=== PATIENT | male | born 1935 | race Caucasian/White ===

== ENCOUNTER → 2017-04-27 | Outpatient (CLI) | payer OTHER | LOC: FIMAGING 11:24 | PROVIDERS: ATTEND Specialist | DX: C61 Malignant neoplasm of prostate (principal) | CPT/HCPCS: 78306; A9503 ==

== ENCOUNTER 2018-03-22 20:52 | Inpatient (IN) | payer OTHER ==
--- NOTE | 2018-03-22 20:53 | EDPHY ---
H & P Time Seen by Provider: 03/22/18 20:53 - Personal History Tetanus Vaccine Date: <10 years - Medical/Surgical History Hx Asthma: No Hx Chronic Respiratory Disease: No Hx Diabetes: No Hx Cardiac Disease: No Hx Renal Disease: No Hx Cirrhosis: No Hx Alcoholism: No Hx HIV/AIDS: No Hx Splenectomy or Spleen Trauma: No Other PMH: prostate ca, bone ca, HTN, pre-diabete (resolved), sleep apnea, home O2 - Social History Smoking Status: Never smoked Constitutional: Initial Vital Signs Temperature (C) 36.8 C 03/22/18 21:06 Heart Rate 75 03/22/18 21:06 Respiratory Rate 16 03/22/18 21:06 Blood Pressure 144/91 H 03/22/18 21:06 O2 Sat (%) 93 03/22/18 21:06 O2 Delivery Mode Room Air O2 (L/minute) 3 Allergies/Adverse Reactions: clindamycin Allergy (Severe, Verified 10/12/13 16:16) Hives Penicillins Allergy (Severe, Verified 10/12/13 16:16) Anaphylaxis Sulfa (Sulfonamide Antibiotics) Allergy (Intermediate, Verified 10/12/13 16:16) Rash Home Medications: Medication Instructions Recorded Herbals/Supplements -Info Only 1 each PO AD 10/12/13 Levothyroxine [Synthroid 100 mcg 100 mcg PO DAILY18 10/12/13 (*)] Lisinopril [Zestril 20 mg (*)] 40 mg PO DAILY18 10/12/13 Pregabalin [Lyrica 75mg (*)] 75 mg PO BID 10/12/13 Simvastatin [Zocor 20 mg] 20 mg PO DAILY18 10/12/13 celeCOXIB [Celebrex (*)] 200 mg PO BID 10/12/13 Mirabegron [Myrbetriq] 25 mg PO DAILY18 04/14/16 Rivaroxaban [Xarelto 10mg (*)] 20 mg PO DAILY18 04/14/16 Furosemide [Lasix 20 MG (*)] 20 mg PO DAILY PRN 04/15/16 Latanoprost 0.005% [Xalatan 0.005% 1 drops EACHEYE HS 04/15/16 (*)] Pantoprazole Sodium [Protonix 40mg 40 mg PO DAILY18 04/15/16 (*)] Medical Decision Making - Diagnostics Imaging Results: Imaging Impressions Abdomen CT 03/22/18 20:59 Impression: 1. Mild constipation with sigmoid colon diverticulosis, but no active inflammation. 2. Accentuated abdominal pannus with obesity, but no ventral wall or inguinal hernia identified. 3. Interval development of widespread osteoblastic metastatic disease since 2014. 4. Hepatic steatosis. 5. Sequela of old granulomatous disease. Findings were discussed with Behzad Tsai MD at 22:54, on 03/22/2018. ED Course/Re-evaluation: CHIEF COMPLAINT: Groin pain HISTORY OF PRESENT ILLNESS: This patient is an 82 year old male with history of prostate cancer arriving via EMS complaining of bilateral inguinal pain and swelling. This has been ongoing for the past week. It was initially intermittent but is now fairly constant. Additionally, the patient complains of confusion and nausea. BGL 149 in transport. Patient states he has had a decreased appetite lately, but had a normal bowel movement last night. He has history of c-difficile. He has history of inguinal hernia repair in the past. He denies melena or hematochezia. No fever, vomiting, chest pain, shortness of breath, or other associated symptoms. REVIEW OF SYSTEMS: A 10 point review of systems was performed and is negative with the exception of the elements mentioned in the history of present illness. PHYSICAL EXAM: HR, BP, O2 Sat, RR. Temp noted General Appearance: Alert, well hydrated, appropriate, and non-toxic appearing. Head: Atraumatic without scalp tenderness or obvious injury Eyes: Pupils equal, round, reactive to light and accommodation, EOMI, no trauma , no injection. Ears: Clear bilaterally, no perforation, normal landmarks Nose: Atraumatic, no rhinorrhea, clear. Throat: There is no erythema or exudates, no lesions, normal tonsils, mucus membranes moist. Neck: Supple, 2+ carotid upstroke, nontender, no lymphadenopathy. Respiratory: No retractions, no distress, no wheezes, and no accessory muscle use. Lungs are clear to auscultation bilaterally. Cardiovascular: Regular rate and rhythm, no murmurs, rubs, or gallops. Bilateral carotid, radial, dorsalis pedis, and posterior tibial pulses intact. Good capillary refill all extremities. Gastrointestinal: Abdomen is soft, nontender, non-distended, no masses, no rebound, no guarding, no peritoneal signs. Genitourinary:Mild bulge on right inguinal area. Tender, right greater than left. Condom catheter in place Musculoskeletal: Normal active ROM of all extremities, atraumatic. Neurological: Alert, appropriate, and interactive. The patient has normal DTRs and non-focal cranial nerves, motor, sensory, and cerebellar exam. Skin: No rashes, good turgor, no nodules on palpation. Past medical history: History of prostate cancer, History of bone cancer, Hypertension, Pre-diabetes (resolved), Sleep apnea (on home oxygen) Past surgical history: Hernia repair. Family history: Noncontributory. Social history: Lives in [place]. . Retired. DIAGNOSTICS/PROCEDURES/CRITICAL CARE TIME: Study: CT of the abdomen and pelvis with IV contrast Indication: Right groin pain rule out hernia Results: CT scan of the abdomen and pelvis was obtained. The results of the study are no evidence of hernia however significant blastic metastatic disease most likely prostate. The study was read by the radiologist, Dr. Jaren Mcallister. I viewed the images myself on the PACS system. DIFFERENTIAL DIAGNOSIS: The differential diagnosis for the patient's abdominal pain included but was not limited to appendicitis, cholecystitis, hernias, testicular torsion, gastritis, and urinary tract infection. MEDICAL DECISION MAKIN:58 Met EMS at bedside. 82 y/o male presents with bilateral groin pain. On exam, there is tenderness to the inguinal areas, right greater than left, with mild bulge noted over the right inguinal area. Plan for labs including CBC, chemistries, liver, lipase. Plan for CT abdomen/pelvis. No acute findings on his CT except for progression of his metastatic prostate disease. No evidence of hernia or acute bowel inflammatory process. He is constipated and his sigmoid colon is in the lower right quadrant he may be feeling pain from this. I have offered to send this patient home however he is having significant difficulty controlling pain most likely from his blastic metastases in his pelvis and spine. In addition he has constipation. Additionally, his is elderly and has trouble managing him. We will admit him overnight and assess whether not it is appropriate for him to return home or whether he needs a different setting. - Data Points Laboratory Results: Laboratory Results 03/22/18 21:35 03/22/18 21:35 03/22/18 03/22/18 03/22/18 21:49 21:35 21:35 WBC 5.30 10^3/uL 10^3/uL (3.80-9.50) RBC 4.35 10^6/uL L 10^6/uL (4.40-6.38) Hgb 13.2 g/dL L g/dL (13.7-17.5) POC Hgb 13.9 gm/dL gm/dL (13.7-17.5) Hct 40.7 % % (40.0-51.0) POC Hct 41 % % (40-51) MCV 93.6 fL fL (81.5-99.8) MCH 30.3 pg pg (27.9-34.1) MCHC 32.4 g/dL g/dL (32.4-36.7) RDW 15.9 % H % (11.5-15.2) Plt Count 182 10^3/uL 10^3/uL (150-400) MPV 9.5 fL fL (8.7-11.7) Neut % (Auto) 62.3 % % (39.3-74.2) Lymph % (Auto) 22.3 % % (15.0-45.0) [place] % (Auto) 8.7 % % (4.5-13.0) Eos % (Auto) 4.3 % % (0.6-7.6) Baso % (Auto) 0.9 % % (0.3-1.7) Nucleat RBC Rel Count 0.0 % % (0.0-0.2) Absolute Neuts (auto) 3.30 10^3/uL 10^3/uL (1.70-6.50) Absolute Lymphs (auto) 1.18 10^3/uL 10^3/uL (1.00-3.00) Absolute Monos (auto) 0.46 10^3/uL 10^3/uL (0.30-0.80) Absolute Eos (auto) 0.23 10^3/uL 10^3/uL (0.03-0.40) Absolute Basos (auto) 0.05 10^3/uL 10^3/uL (0.02-0.10) Absolute Nucleated RBC 0.00 10^3/uL 10^3/uL (0-0.01) Immature Gran % 1.5 % H % (0.0-1.1) Immature Gran # 0.08 10^3/uL 10^3/uL (0.00-0.10) POC Sodium 142 mEq/L mEq/L (135-145) Sodium 140 mEq/L mEq/L (135-145) POC Potassium 4.2 mEq/L mEq/L (3.3-5.0) Potassium 4.3 mEq/L mEq/L (3.3-5.0) POC Chloride 101 mEq/L mEq/L (97-110) Chloride 100 mEq/L mEq/L (97-110) Carbon Dioxide 32 mEq/l H mEq/l (22-31) Anion Gap 8 mEq/L mEq/L (8-16) POC BUN 21 mg/dL mg/dL (7-23) BUN 21 mg/dL mg/dL (7-23) Creatinine 0.9 mg/dL mg/dL (0.7-1.3) POC Creatinine 0.9 mg/dL mg/dL (0.7-1.3) Estimated GFR > 60 Glucose 155 mg/dL H mg/dL (70-100) POC Glucose 164 mg/dL H mg/dL (70-100) Calcium 8.3 mg/dL L mg/dL (8.5-10.4) Total Bilirubin 0.6 mg/dL mg/dL (0.1-1.4) Conjugated Bilirubin 0.5 mg/dL mg/dL (0.0-0.5) Unconjugated Bilirubin 0.1 mg/dL mg/dL (0.0-1.1) AST 36 IU/L IU/L (17-59) ALT 45 IU/L IU/L (21-72) Alkaline Phosphatase 90 IU/L IU/L (38-126) Total Protein 6.2 g/dL L g/dL (6.3-8.2) Albumin 3.6 g/dL g/dL (3.5-5.0) Lipase 43 IU/L IU/L (23-300) Point of Care Test Results: Chemistry 03/22/18 21:49 POC Sodium 142 mEq/L mEq/L (135-145) POC Potassium 4.2 mEq/L mEq/L (3.3-5.0) POC Chloride 101 mEq/L mEq/L (97-110) POC BUN 21 mg/dL mg/dL (7-23) POC Creatinine 0.9 mg/dL mg/dL (0.7-1.3) POC Glucose 164 mg/dL H mg/dL (70-100) ISTAT H&H 03/22/18 21:49 POC Hgb 13.9 gm/dL gm/dL (13.7-17.5) POC Hct 41 % % (40-51) Departure - Departure Disposition: [facility] Inpatient Acute 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
[2018-03-22 21:55] LABS: PLATELET COUNT 182 10^3/uL (150-400)
[2018-03-22] MEDS ORDERED: IOPAMIDOL (ISOVUE-300) 100 ML BTL ONE (21:58)
[2018-03-22] MEDS ORDERED: NS 1,000 ML IV SCH (23:30)
[2018-03-22] MEDS ORDERED: BISACODYL 10 MG SUPP PR PRN (23:32)
[2018-03-22] MEDS ORDERED: POLYETHYLENE GLYCOL 3350 17 GM PKT PO PRN (23:32)
[2018-03-22] MEDS ORDERED: LACTULOSE 20 GM/30 ML UDCUP PO PRN (23:32)
[2018-03-22] MEDS ORDERED: MAGNESIUM HYDROXIDE 30 ML UDCUP PO PRN (23:32)
[2018-03-23] MEDS ORDERED: SODIUM CL NASAL GEL 14.1 GM TUBE TP PRN (00:05)
--- NOTE | 2018-03-23 00:20 | PDGENHP ---
History and Physical - Chief Complaint Low back pain, pelvic pain - History of Present Illness Source-patient is seen on the medical floor. His has gone home for the evening. He is a fair historian due to some memory deficits but able to relay majority of the information. EMR was reviewed and case discussed with ED provider. HPI-this is a very pleasant 82-year-old gentleman with past medical history significant for HTN, HLD, pre DM, JASWINDER on home O2 and history of prostate metastatic prostate cancer status post cryo ablation, XRT and now on hormone therapy who presents emergency department today with complaints of progressive pelvic pain. Patient at home has had progressively worsening mobility. He is no longer able to ambulate we even with assistance of walker. He reports that he has a sit to stand device at home but otherwise is not able to mobilize on his own. He does have home health and home PT. His is the primary caregiver but he has had progressive generalized weakness and increasing pelvic pain. Patient denies any fevers but he has had ongoing chills since initiation of hormone therapy. In the last several days he has had declining appetite with decreased oral intake. Patient reports increased abdominal fullness but normally has an obese abdomen. Patient denies any chest pain, palpitations, shortness of breath. He is recovering from upper respiratory infection and reports that his cough is almost resolved. Patient also notes than the last air to he has had a few episodes of nausea and vomiting without any hematemesis. Patient reports that he believes his last bowel movement was yesterday but he is not 100% sure. He denies any melena or hematochezia. Patient does have urinary incontinence and wears a condom catheter. He reports that prior to having the catheter he was experiencing some difficulties voiding and dysuria but this has resolved. He denies any hematuria. History Information - Allergies/Home Medication List Allergies/Adverse Reactions: clindamycin Allergy (Severe, Verified 10/12/13 16:16) Hives Penicillins Allergy (Severe, Verified 10/12/13 16:16) Anaphylaxis Sulfa (Sulfonamide Antibiotics) Allergy (Intermediate, Verified 10/12/13 16:16) Rash Home Medications: Herbals/Supplements -Info Only 1 each PO AD 10/12/13 [Last Taken Unknown] Levothyroxine [Synthroid 100 mcg (*)] 100 mcg PO DAILY18 10/12/13 [Last Taken 07 /18/16] Lisinopril [Zestril 20 mg (*)] 40 mg PO DAILY18 10/12/13 [Last Taken 04/13/16] Pregabalin [Lyrica 75mg (*)] 75 mg PO BID 10/12/13 [Last Taken 04/14/16 08:00] Simvastatin [Zocor 20 mg] 20 mg PO DAILY18 10/12/13 [Last Taken 04/13/16] celeCOXIB [Celebrex (*)] 200 mg PO BID 10/12/13 [Last Taken 04/14/16 08:00] Mirabegron [Myrbetriq] 25 mg PO DAILY18 04/14/16 [Last Taken 04/13/16] Rivaroxaban [Xarelto 10mg (*)] 20 mg PO DAILY18 04/14/16 [Last Taken 04/13/16] Furosemide [Lasix 20 MG (*)] 20 mg PO DAILY PRN 04/15/16 [Last Taken 1 Week Ago ~04/08/16] Latanoprost 0.005% [Xalatan 0.005% (*)] 1 drops EACHEYE HS 04/15/16 [Last Taken 04/13/16] Pantoprazole Sodium [Protonix 40mg (*)] 40 mg PO DAILY18 04/15/16 [Last Taken ] I have personally reviewed and updated: family history, medical history, social history, surgical history - Past Medical History Additional medical history: Metastatic prostate cancer status post cryoablation , XRT, now on hormone therapy. HTN, HLD, JASWINDER on home O2, pre DM, chronic lower extremity edema, chronically on Xarelto for anticoagulation which patient cannot recall why. Glaucoma. History of chronic C diff infection on diagnosed initially 02/13/2017 currently on chronic oral vancomycin followed by infectious disease. Two thousand sixteen patient was admitted for a bleeding varices see on his leg causing hypotension and anemia. - Surgical History Additional surgical history: Inguinal hernia repair, [place] a, left cataract extraction with lens placement. - Family History Additional family history: Parents are . Patient with 2 adult children who are healthy. - Social History Smoking Status: Never smoked Alcohol Use: None Drug Use: None Additional social history: Patient is and lives with his . She has her his primary caregiver. Cor status-discussed with the patient he desires to be a DNR DNI. He states that he is in process of trying to complete an advance directive. Review of Systems Review of Systems: ROS: 10pt was reviewed & negative except for what was stated in HPI & below Constitutional: Reports: chills (Chronic at HS with hormone therapy.), weakness (Generalized particularly the lower extremities.). Denies: fever, weight loss EENMT: Reports: nose congestion, other (Wears glasses.). Denies: double vision , sore throat Cardiac: Reports: edema (Chronic bilateral lower extremity edema). Denies: chest pain, palpitations Respiratory: Reports: cough (Improving following URI.), shortness of breath ( Occasional with recent URI.) Gastrointestinal: Reports: vomitting, abdominal pain, constipation, nausea. Denies: black stools, diarrhea Genitourinary: Reports: incontinence (Condom cath in place.). Denies: dysuria, hematuria Muscolosketal: Reports: back pain, joint pain (Lower extremities and back.), muscle pain Skin: Reports: other (Chronic skin changes to bilateral lower legs. Chronically flaky dry skin. Patient denies any open sores or wounds.) Neurological: Reports: weakness (Nonfocal generalized lower extremities worse than upper extremity.). Denies: emotional problems, headache, numbness, tingling Hematologic/Lymphatic: Reports: no symptoms Physical Exam Physical Exam: Selected Entries 03/22/18 21:06 Blood Pressure Automatic Method Heart Rate 75 Respiratory 16 Rate O2 Sat (%) 93 Temperature (C) 36.8 C Blood Pressure 144/91 H Mean Arterial 108 H Pressure (MAP) O2 (L/minute) 3 O2 Delivery Nasal Cannula Mode Temperature Oral Source Temp Pulse Resp BP Pulse Ox 36.6 C 71 16 144/81 H 95 03/22/18 23:43 03/22/18 23:43 03/22/18 23:43 03/22/18 23:43 03/22/18 23:43 Constitutional: no apparent distress, chronically ill appearing, obese, uncomfortable (Uncomfortable with movement otherwise patient rest comfortably with his legs elevated in the bed.) Eyes: PERRL (Left lens route reflex appreciated.), anicteric sclera, EOMI, No scleral injection Ears, Nose, Mouth, Throat: moist mucous membranes, poor dentition (To upper dentition missing.) Cardiovascular: regular rate and rhythym, no murmur, rub, or gallop, pulses symmetric bilaterally, edema (Chronic lower extremity itchy skin changes.), other (Distant heart sounds due to body habitus.) Peripheral Pulses: 2+: dorsalis-pedis (R), dorsalis-pedis (L) Respiratory: no respiratory distress, no rales or rhonchi, clear to auscultation , reduced air movement (Decreased inspiratory effort some limitation related to body habitus.) Gastrointestinal: normoactive bowel sounds, no palpable masses, tenderness ( Patient with some mild tenderness to palpation without rebound or guarding in the lower abdomen.), distension (Abdomen is obese slightly distended but still soft.), No ascites Skin: warm, other (Chronic lower extremity skin changes.), No erythema Musculoskeletal: pain with ROM (Lower extremities and back.), generalized weakness, No no muscle tenderness Neurologic: AAOx3 (Patient with some memory deficits regarding past medical history.), sensation intact bilaterally, CN II-XII Intact (Grossly nonfocal exam.), No facial droop Psychiatric: interacting appropriately, not anxious, not encephalopathic, thought process linear, poor memory, No anxious, No depressed Lab Data & Imaging Review 03/22/18 21:35 03/22/18 21:35 WBC 5.30 10^3/uL (3.80-9.50) 03/22/18 21:35 RBC 4.35 10^6/uL (4.40-6.38) L 03/22/18 21:35 Hgb 13.2 g/dL (13.7-17.5) L 03/22/18 21:35 POC Hgb 13.9 gm/dL (13.7-17.5) 03/22/18 21:49 Hct 40.7 % (40.0-51.0) 03/22/18 21:35 POC Hct 41 % (40-51) 03/22/18 21:49 MCV 93.6 fL (81.5-99.8) 03/22/18 21:35 MCH 30.3 pg (27.9-34.1) 03/22/18 21:35 MCHC 32.4 g/dL (32.4-36.7) 03/22/18 21:35 RDW 15.9 % (11.5-15.2) H 03/22/18 21:35 Plt Count 182 10^3/uL (150-400) 03/22/18 21:35 MPV 9.5 fL (8.7-11.7) 03/22/18 21:35 Neut % (Auto) 62.3 % (39.3-74.2) 03/22/18 21:35 Lymph % (Auto) 22.3 % (15.0-45.0) 03/22/18 21:35 Henry % (Auto) 8.7 % (4.5-13.0) 03/22/18 21:35 Eos % (Auto) 4.3 % (0.6-7.6) 03/22/18 21:35 Baso % (Auto) 0.9 % (0.3-1.7) 03/22/18 21:35 Nucleat RBC Rel Count 0.0 % (0.0-0.2) 03/22/18 21:35 Absolute Neuts (auto) 3.30 10^3/uL (1.70-6.50) 03/22/18 21:35 Absolute Lymphs (auto) 1.18 10^3/uL (1.00-3.00) 03/22/18 21:35 Absolute Monos (auto) 0.46 10^3/uL (0.30-0.80) 03/22/18 21:35 Absolute Eos (auto) 0.23 10^3/uL (0.03-0.40) 03/22/18 21:35 Absolute Basos (auto) 0.05 10^3/uL (0.02-0.10) 03/22/18 21:35 Absolute Nucleated RBC 0.00 10^3/uL (0-0.01) 03/22/18 21:35 Immature Gran % 1.5 % (0.0-1.1) H 03/22/18 21:35 Immature Gran # 0.08 10^3/uL (0.00-0.10) 03/22/18 21:35 POC Sodium 142 mEq/L (135-145) 03/22/18 21:49 Sodium 140 mEq/L (135-145) 03/22/18 21:35 POC Potassium 4.2 mEq/L (3.3-5.0) 03/22/18 21:49 Potassium 4.3 mEq/L (3.3-5.0) 03/22/18 21:35 POC Chloride 101 mEq/L (97-110) 03/22/18 21:49 Chloride 100 mEq/L (97-110) 03/22/18 21:35 Carbon Dioxide 32 mEq/l (22-31) H 03/22/18 21:35 Anion Gap 8 mEq/L (8-16) 03/22/18 21:35 POC BUN 21 mg/dL (7-23) 03/22/18 21:49 BUN 21 mg/dL (7-23) 03/22/18 21:35 Creatinine 0.9 mg/dL (0.7-1.3) 03/22/18 21:35 POC Creatinine 0.9 mg/dL (0.7-1.3) 03/22/18 21:49 Estimated GFR > 60 03/22/18 21:35 Glucose 155 mg/dL (70-100) H 03/22/18 21:35 POC Glucose 164 mg/dL (70-100) H 03/22/18 21:49 Calcium 8.3 mg/dL (8.5-10.4) L 03/22/18 21:35 Total Bilirubin 0.6 mg/dL (0.1-1.4) 03/22/18 21:35 Conjugated Bilirubin 0.5 mg/dL (0.0-0.5) 03/22/18 21:35 Unconjugated Bilirubin 0.1 mg/dL (0.0-1.1) 03/22/18 21:35 AST 36 IU/L (17-59) 03/22/18 21:35 ALT 45 IU/L (21-72) 03/22/18 21:35 Alkaline Phosphatase 90 IU/L (38-126) 03/22/18 21:35 Total Protein 6.2 g/dL (6.3-8.2) L 03/22/18 21:35 Albumin 3.6 g/dL (3.5-5.0) 03/22/18 21:35 Lipase 43 IU/L (23-300) 03/22/18 21:35 Imaging Review: Contrast Enhanced CT Scan of the Abdomen and Pelvis Clinical History: 82-year-old male presenting to the ED with a palpable lump in the right groin area, and a prior history of hernia repair. The patient also has a history of prostate cancer. Technique: Neither oral nor rectal contrast was administered. Following the uncomplicated intravenous administration of 98 mL of Isovue-300, a multidetector helical CT scan was obtained from the lung bases inferiorly through the proximal femora, with images reformatted at 5.00 and 1.50 mm increments, and reviewed at a variety of window and level settings. Parasagittal and paracoronal reconstructed images are reviewed on the workstation. The DFOV is 50.0 cm. Dose reduction techniques were utilized. Comparison Studies: Whole body bone scan, dated 04/27/2017, thoracolumbar spine radiographs dated , and the dictated report of a CT scan of the chest dated 12/02/05 (images have been purged). Findings: Lung Bases: Again, there is a 4 mm calcified granuloma in the left lower lobe. There is bibasilar subsegmental atelectasis with peribronchial thickening. There is aortic valvular and annular calcification. There is no pericardial or pleural effusion. Liver: There is mild generalized hepatic steatosis. There is no focal mass. There is a tiny calcified granuloma in the caudate lobe. Bile Ducts: Normal. Gallbladder: The gallbladder is moderately distended. There are no calcified gallstones, wall thickening, or pericholecystic fluid. Pancreas: There is some fatty involutional change, with no pancreatic mass or peripancreatic inflammation. Spleen: Normal. Adrenal Glands: Normal. Kidneys/Ureters/Urinary Bladder: The kidneys are normal in size, shape, and position. There is mild bilateral pelvocaliectasis and/or parapelvic cysts (delayed excretory phase images were not acquired). The ureters are not dilated. The urinary bladder is incompletely distended, which may account for its mildly thickened wall GI Tract: There is a tiny hiatal hernia. The stomach and small bowel appear normal. There is mild constipation. There are few sigmoid colon diverticula. The retrocecal appendix appears normal. Retroperitoneum: There are no pathologically enlarged lymph nodes along the aortoiliac vasculature he. Couple of shotty lymph nodes are seen near the aortoiliac bifurcation. Mesentery/Omentum/Peritoneum: There is no ascites, free air, or localized fluid collection.] There is no mesenteric adenopathy, mesenteric edema, omental caking, or peritoneal nodule identified. Vessels: The abdominal aorta is normal in size, and tapers normally, with some atherosclerotic calcific plaque present. The IVC is normal in caliber. The splenic vein, superior mesenteric vein, and the main portal vein are patent. Reproductive Organs: The prostate gland is diminutive. The seminal vesicles are thin. Abdominal Wall: There is a large abdominal pannus and centripetal and subcutaneous obesity with atrophy of the rectus abdominis and oblique musculature. There is no ventral wall hernia or inguinal hernia identified. Osseous Structures: There is an abnormal appearance to the visualized axial and appendicular skeleton with widespread osteoblastic lesions, new since the 2015 study. There is an old moderate L1 compression fracture, similar to the 2015 study. There are mid to lower lumbar canal stenoses with multilevel facet osteoarthropathy. Impression: 1. Mild constipation with sigmoid colon diverticulosis, but no active inflammation. 2. Accentuated abdominal pannus with obesity, but no ventral wall or inguinal hernia identified. 3. Interval development of widespread osteoblastic metastatic disease since 2014. 4. Hepatic steatosis. 5. Sequela of old granulomatous disease. Findings were discussed with Behzad Tsai MD at 22:54, on 03/22/2018. Visualized and Interpreted imaging results: Yes Assessment & Plan Assessment: Intractable pain - patient with some lower abdominal pain which could be a combination of constipation as well as metastatic prostate cancer. When at rest patient appears to be fairly comfortable. Will try to minimize use of any narcotics and initiate bowel program. Patient denies any known history of GI bleeding. Constipation (Acute) - bowel regimens to start in the morning as patient is complaining of some fatigue. 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 He does however have new mets to the spine and pelvis. He is currently on hormone therapy. Will further clarify patient's current treating provider. Continue patient's med Neil. He has history of urinary incontinence and condom catheter is in place. No evidence of fevers or leukocytosis or current come urinary complaints. Will not check a UA given the patient's collection bag is not sterile. Generalized weakness - PT and OT will be consulted in the morning. A current baseline patient reports that he is no longer able to ambulate with use of walker due to lower extremity weakness. Patient with some home health services but however he has increasing care needs. His is currently gone home for the evening will need to clarify with her and the patient in the morning regarding consideration for additional home needs verses of placement. At this point patient reports that he would want to go home but will need to have further family discussions in the morning as per day team. Chronic medical issues Benign essential hypertension - blood pressures at this time are acceptable. Resume patient's lisinopril tomorrow when med rec available. HLD - continue statin JASWINDER - continue supplemental oxygen. Pre diabetes - monitor blood sugars. Patient is not on insulin at home. Currently blood sugars are acceptable for this frail elderly gentleman and so will monitor with morning labs if needed. Chronic lower extremity edema - elevate extremities. History of chronic C diff - continue patient's vancomycin four times daily. Also his Xtandi Glaucoma - continue drops Allergic rhinitis - saline spray and Flonase. Chronic anticoagulation was Xarelto - plan to continue. Reason for continued anticoagulation is unknown to at this time patient cannot recall. FEN - advance diet as tolerated. Patient does not appear dehydrated at this time will hold off on IV fluids. Electrolyte monitoring replacement if needed. PPX-continue Xarelto when med rec available. No SCDs secondary to edema and chronic lower extremity skin changes. Cor status-DNR DNI. Will provide patient and his advanced directive booklet. Disposition-patient admitted observation status on the medical floor at this time for additional PT OT evaluation, bowel program to see if this will improve patient's pelvic pain and pain control.
[2018-03-23] MEDS: ACETAMINOPHEN 325 MG TAB PO PRN (01:12)
[2018-03-23] MEDS: FLUTICASONE NASAL 120 SPRAYS/16 GM MDI EACHNARE SCH ×2 (01:25→08:18)
[2018-03-23] MEDS: ONDANSETRON 4 MG/2 ML VIAL IVP PRN ×2 (03:46→18:03)
[2018-03-23] MEDS ORDERED: VANCOMYCIN 125 MG/2.5 ML UDL PO SCH (06:00)
[2018-03-23] MEDS: SENNOSIDES/DOCUSATE SODIUM TAB PO SCH ×2 (08:17→21:21)
[2018-03-23] MEDS: HYDROCODONE/APAP 5/325 TAB PO PRN ×3 (08:33→18:47)
--- NOTE | 2018-03-23 14:13 | HOSPPROG ---
Hospitalist Progress Note Subjective: ct images reviewed/interpreted by me Objective: Vital Signs Temp Pulse Resp BP Pulse Ox 36.7 C 80 16 144/71 H 90 L 03/23/18 12:48 03/23/18 12:48 03/23/18 12:48 03/23/18 12:48 03/23/18 12:48 Laboratory Results 03/23/18 04:36 03/23/18 04:36 03/22/18 03/23/18 03/24/18 05:59 05:59 05:59 Intake Total 350 Output Total 350 Balance 0 ICD10 Worksheet Patient Problems: Problems Problem Status Onset Constipation Acute Prostate cancer metastatic to bone Acute Bleeding from varicose veins of lower extremity Acute C. difficile diarrhea Acute ~02/13/17 Clostridium difficile infection Acute ~07/09/17
--- NOTE | 2018-03-23 14:17 | HOSPPROG ---
Hospitalist Progress Note Assessment/Plan: 82 yo M w metastatic prostate CA a/w constipation and weakness weakness: he is largely bedbound using a an assist device to stand. I suspect he is just deconditioned given widespread bony metastasis, will check MR of T and L spine constipation: extensive, likely due to inactivity golyetly prep painL continue pain meds h/o recurrent cdiff: on suppressive vancomycin code: dnr anticoag: unclear indication will discuss w family dispo: inpt Subjective: ct images reviewed/interp by me Objective: Vital Signs Temp Pulse Resp BP Pulse Ox 36.7 C 80 16 144/71 H 90 L 03/23/18 12:48 03/23/18 12:48 03/23/18 12:48 03/23/18 12:48 03/23/18 12:48 Laboratory Results 03/23/18 04:36 03/23/18 04:36 03/22/18 03/23/18 03/24/18 05:59 05:59 05:59 Intake Total 350 Output Total 350 Balance 0 - Physical Exam Constitutional: no apparent distress, appears nourished Eyes: PERRL, anicteric sclera Ears, Nose, Mouth, Throat: moist mucous membranes, hearing normal Cardiovascular: regular rate and rhythym, no murmur, rub, or gallop Respiratory: no respiratory distress, no rales or rhonchi Gastrointestinal: normoactive bowel sounds, soft, non-tender abdomen, No guarding, No rebound Genitourinary: no bladder fullness Skin: warm, normal color, No no induration Musculoskeletal: No full muscle strength Neurologic: other (generalized leg weakness. L>R), No AAOx3 Psychiatric: interacting appropriately ICD10 Worksheet Patient Problems: Problems Problem Status Onset Constipation Acute Prostate cancer metastatic to bone Acute Bleeding from varicose veins of lower extremity Acute C. difficile diarrhea Acute ~02/13/17 Clostridium difficile infection Acute ~07/09/17
[2018-03-23] MEDS ORDERED: LORazepam 0.5 MG TAB PO ONE (14:24)
[2018-03-23] MEDS: VANCOMYCIN 125 MG/2.5 ML UDL PO SCH ×2 (14:45→21:22)
[2018-03-23] MEDS ORDERED: PEG 3350/NA SULF,BICARB,CL/KCL (GAVILYTE-G) 4000 ML BTL PO ONE ×2 (15:00→17:30)
[2018-03-23] MEDS ORDERED: GADOBUTROL 10 ML VIAL IVP ONE (15:04)
--- NOTE | 2018-03-23 15:29 | PDMN ---
Medical Necessity Medical necessity: Change to IP, as of 03/23/18, per MD; los >2 mn for ongoing management of pain & weakness w/widespread bony metastasis & constipation; admit for further workup, pain management, bowel protocol & therapies; comorbid metastatic prostate cancer, recurrent C-diff; per progress note & order 03/23/18
[2018-03-23] MEDS: RIVAROXABAN 20 MG TAB PO SCH (21:21)
[2018-03-23] MEDS: PREGABALIN 75 MG CAP PO SCH (21:21)
[2018-03-23] MEDS: CYANO/VITAMIN B12 1000 MCG TAB PO SCH (21:21)
[2018-03-23] MEDS: CHOLECALCIFEROL VIT D3 1,000 UNITS TAB PO SCH (21:21)
[2018-03-23] MEDS: VITAMIN B COMPLEX 1 EA CAP/TAB PO SCH (21:21)
[2018-03-23] MEDS: PANTOPRAZOLE SODIUM 40 MG TAB PO SCH (21:21)
[2018-03-23] MEDS: LEVOTHYROXINE 100 MCG TAB PO SCH (21:22)
[2018-03-23] MEDS: LATANOPROST 0.005% 2.5 ML OPHT DROPS EACHEYE SCH (21:34)
[2018-03-23] MEDS: Mirabegron [Myrbetriq] 50 MG PO SCH (21:34)
[2018-03-23] MEDS: Enzalutamide [Xtandi] 80 MG PO SCH (21:37)
[2018-03-24] MEDS: HYDROCODONE/APAP 5/325 TAB PO PRN ×3 (00:49→16:52)
[2018-03-24] MEDS: ONDANSETRON 4 MG/2 ML VIAL IVP PRN (00:50)
[2018-03-24] MEDS ORDERED: MAGNESIUM CITRATE 300 ML BOTTLE PO ONE (09:17)
--- NOTE | 2018-03-24 09:22 | HOSPPROG ---
Hospitalist Progress Note Assessment/Plan: 82 yo M w metastatic prostate CA a/w constipation and weakness weakness: MRI shows diffuse bony mets but no tumor compressing spine noted is severe l5-s1 stenosis he is not having incontinence he has likely had this for years, but will have neurosurgery eval patient and images compression fracture: not c/o pain constipation: extensive, likely due to inactivity intolerant of golyetly prep trial of mag citrate X 1 pain: continue pain meds h/o recurrent cdiff: on suppressive vancomycin code: dnr anticoag: unclear indication will discuss w family dispo: inpt Subjective: not tolerating golytely prep. case d/w neurosurgery Objective: Vital Signs Temp Pulse Resp BP Pulse Ox 36.8 C 70 16 148/76 H 93 03/24/18 07:53 03/24/18 07:53 03/24/18 07:53 03/24/18 07:53 03/24/18 08:06 03/23/18 03/24/18 03/25/18 05:59 05:59 05:59 Intake Total 450 Output Total 250 Balance 200 - Physical Exam Constitutional: chronically ill appearing Eyes: PERRL, anicteric sclera Ears, Nose, Mouth, Throat: moist mucous membranes, hearing normal Cardiovascular: regular rate and rhythym, no murmur, rub, or gallop Respiratory: no respiratory distress, no rales or rhonchi Gastrointestinal: normoactive bowel sounds, soft, non-tender abdomen Genitourinary: no bladder fullness, No arenas in urethra Skin: warm, normal color Musculoskeletal: no muscle tenderness, No full muscle strength Neurologic: AAOx3, other (b/l leg weakness) ICD10 Worksheet Patient Problems: Problems Problem Status Onset Constipation Acute Prostate cancer metastatic to bone Acute Bleeding from varicose veins of lower extremity Acute C. difficile diarrhea Acute ~02/13/17 Clostridium difficile infection Acute ~07/09/17
[2018-03-24] MEDS: PREGABALIN 75 MG CAP PO SCH ×2 (09:36→21:57)
[2018-03-24] MEDS: SENNOSIDES/DOCUSATE SODIUM TAB PO SCH ×2 (09:37→21:57)
[2018-03-24] MEDS: VANCOMYCIN 125 MG/2.5 ML UDL PO SCH ×2 (09:37→21:57)
[2018-03-24] MEDS: guaiFENesin 600 MG TAB.ER PO SCH (09:37)
[2018-03-24] MEDS: FLUTICASONE NASAL 120 SPRAYS/16 GM MDI EACHNARE SCH (09:40)
--- NOTE | 2018-03-24 14:24 | GCON ---
[f rep st] CONSULTATION DATE OF CONSULTATION: 03/24/2018 REASON FOR CONSULTATION: Lower extremity pain and weakness. HOSPITAL COURSE/HISTORY/MAJOR MEDICAL FINDINGS: The patient is an 82-year-old gentleman who has a past medical history significant for metastatic prostate cancer, hypertension, hyperlipidemia, prediabetes and obstructive sleep apnea. He was brought to the emergency room today with complaints of new progressive pelvic pain and weakness. Per him, his pain has greatly increased over the last month and, with that, his inability to walk and stand due to the pain has worsened. He does have some left leg weakness as well and, at this point, is unable to bear full weight on his legs. He has to go from a seated to standing position with a modified lift. He denies any saddle anesthesia, any loss of bowel or bladder control. He does state that 1 month ago he was able to ambulate with a walker. The patient does have a history of urinary incontinence as well and wears a condom catheter. REVIEW OF SYSTEMS: Review of systems is negative other than what is stated in the HPI. Please see pertinent negatives and pertinent positives. PAST MEDICAL HISTORY: Significant for metastatic prostate cancer, hypertension , hyperlipidemia, obstructive sleep apnea on baseline home O2, prediabetes, chronic lower extremity edema, chronic Xarelto use for anticoagulation in the past, history of glaucoma, history of chronic C. difficile infection for which he is maintained on oral vancomycin. PAST SURGICAL HISTORY: Significant for inguinal hernia repair, left cataract extraction and lens placement. FAMILY HISTORY: Noncontributory. SOCIAL HISTORY: Patient has never smoked. He does not use any alcohol or illicit drugs. The patient does live with his at home and she is his primary caregiver. He is a DNR/DNI. HOME MEDICATIONS: Include levothyroxine 100 mcg 1 p.o. daily, lisinopril 20 mg 2 p.o. daily, Lyrica 75 mg 1 p.o. twice daily, Zocor 20 mg 1 p.o. daily, Celebrex 200 mg 1 p.o. twice daily, Myrbetriq, Xarelto 10 mg 2 p.o. daily, Lasix 20 mg 1 p.o. daily, Xalatan eyedrops, and Protonix 40 mg 1 p.o. daily. PHYSICAL EXAM: VITAL SIGNS: Temp is 36.8, BP is 140/76, he is 97% on 6 L nasal cannula. NEUROLOGIC: The patient is in no acute distress. He is alert and oriented x3. Answers all questions appropriately. His affect is appropriate for the given situation. Cranial nerves 2-12 are grossly intact. EOMI and PERRLA. The patient is a 5/5 in his bilateral upper extremities including his deltoids, triceps, biceps, wrist flexors, extensors, interossei, intrinsic shark biologist. In the patient's lower extremities with his left hip flexor he is a 4/5. Quads are 5-/5. Dorsiflexion, plantar flexion, EHL are 5/5. In the patient's right lower extremity, he is very limited due to pain. He has a 5-/5 in his right hip flexor and then a 5/5 in his quads, hamstrings, plantar flexion , dorsiflexion, EHL. Sensation is intact in bilateral upper and bilateral lower extremities. 2+ patellar reflexes bilaterally. Negative clonus. Negative Babinski bilaterally. DIAGNOSTIC REVIEW: Patient underwent a thoracic spine MRI which demonstrated diffuse osseous metastasis involving the entire skeletal system. There is no leptomeningeal carcinomatosis, cord compression or enhancing cord lesions noted. There are multiple mild compression fractures noted at T3, T6, T7, T8 and T11, and also with moderate L1 compression fracture. The patient underwent another lumbar MRI: Diffuse osseous metastasis involving the entire spine. There was an L1 moderate pathogenic compression fracture with minimal buckling on the dorsal cortex but there is no significant stenosis there. At L5-S1, there is severe bilateral facet arthropathy resulting in grade 1 anterolisthesis to severe canal stenosis. At L4-5 there is moderate canal stenosis and bilateral recess stenosis secondary to central disk herniation and severe bilateral facet arthropathy ASSESSMENT AND PLAN: The patient is an 82-year-old gentleman with lower extremity weakness and pain who has become more mobile over time due to pain and inability to fully trust his legs. He is not having any loss of bowel or bladder control or saddle anesthesia. The patient was seen both by Dr. Hutson and myself. We have discussed with Medicine the patient's current medical status and, at this point in time, would recommend an epidural steroid injection to see if we can reduce his inflammation and control his pain better. If he fails to have alleviation with this in conjunction with PT and pain medications, we may need to consider surgical intervention. Surgical intervention would include a decompressive laminectomy. However, we will try to avoid this given the patient's other medical comorbidities and his age. The patient also is on Xarelto and this would have to be held and stopped prior to any surgical treatment. /[id number]/MODL MTDD
--- NOTE | 2018-03-24 14:30 | GCON ---
[f rep st] CONSULTATION DATE OF CONSULTATION: 03/24/2018 REASON FOR CONSULT: Back pain, weakness, scrotal pain. HISTORY OF PRESENT ILLNESS: The patient presented to the emergency room after requesting that his wi fe bring him in for increasing weakness and progressive pain in the scrotum. He has a significant hi story of hypertension, hyperlipidemia, prediabetes, and metastatic prostate cancer, which he is now b eing treated with hormone therapy, , by our office. He also admits to a declining appetite and oral intake recently. Denying chest pain or shortness of breath. PAST MEDICAL HISTORY: Includes hyperlipidemia; hypertension; prediabetes; JASWINDER, on home O2; metastati c prostate cancer, status post cryoablation. ALLERGIES: Clindamycin, penicillin, sulfa. HOME MEDICATIONS: Supplements, levothyroxine, lisinopril, Lyrica, Zocor, Celebrex, Myrbetriq, Xarelt o, Lasix, Protonix. SURGICAL HISTORY: Includes cryotherapy, inguinal hernia repair, T and A, left cataract extraction wi th lens placement. FAMILY HISTORY: Two adult children who are healthy, parents. SOCIAL HISTORY: Lives with . Decreased mobility at home. Smoking history: Never. Alcohol: N one. Drug use: None. REVIEW OF SYSTEMS: 10-point review of systems negative, except as mentioned in the HPI. PHYSICAL EXAM: VITAL SIGNS: Blood pressure 148/76, heart rate 70, respirations 16, O2 97 on 10 L/mi n, temperature 36.8. GENERAL: This is an obese male in no acute distress. HEENT: Normocephalic, a traumatic. Extraocular movements intact. NECK: Supple. No lymphadenopathy. Trachea midline. RES PIRATORY: On O2 in the room. No difficulty breathing. No accessory respiratory muscle use. CARDIA C: Regular rate and rhythm. No obvious JVD. GI: Abdomen is obese, but soft, nontender to palpatio n, not distended. : No CVA tenderness. No bladder distention. Condom catheter on patient draini ng yellow-colored urine. Scrotum is mildly erythematous. No testicular pain or epididymal pain on p alpation. INTEGUMENT: No obvious rashes or lesions other than the mild erythema on the scrotum. MU SCULOSKELETAL: Patient was supine, rather immobile. NEURO: Alert and oriented. Affect appropriate to situation. LABS: His white blood cell count 5.3, hemoglobin 13.2, hematocrit 40.7, platelets 182. Chemistry: His sodium is 143, potassium 4.8, chloride 104, carbon dioxide 32, anion gap 7, BUN 19, creatinine 0. 8, glucose 131, calcium 8.3. He had an abdominal CT done, which showed constipation, interval development of widespread osteoblast ic metastatic disease from 2015, hepatic steatosis, granulomatous disease. His lumbar spine MRI show s diffuse osseous metastatic disease in the entire spine, moderate pathological compression fracture of L1, no significant stenosis, severe bilateral facet arthropathy. Thoracic spine MRI: Diffuse oss eous metastatic disease entire skeletal system, multiple compression fractures. ASSESSMENT AND PLAN: This is a patient with progressive weakness with known widespread metastatic pr ostate cancer. He is currently on anti-hormone therapy, , through our office. I have disc ussed this case and reviewed it with Dr. Flower, who appreciates neurology consult to make sure there is no spinal compression. Would consider a loading dose of steroids, if appropriate, although at thi s time, it does not appear to be necessary. Also, continue to recommend against chemotherapy in this patient. The patient does have a mild yeast infection of his groin. Will prescribe Lotrisone. /[id number]/MODL
[2018-03-24] MEDS: RIVAROXABAN 20 MG TAB PO SCH (18:14)
[2018-03-24] MEDS: CYANO/VITAMIN B12 1000 MCG TAB PO SCH (21:57)
[2018-03-24] MEDS: VITAMIN B COMPLEX 1 EA CAP/TAB PO SCH (21:57)
[2018-03-24] MEDS: CHOLECALCIFEROL VIT D3 1,000 UNITS TAB PO SCH (21:57)
[2018-03-24] MEDS: PANTOPRAZOLE SODIUM 40 MG TAB PO SCH (21:57)
[2018-03-24] MEDS: LEVOTHYROXINE 100 MCG TAB PO SCH (21:58)
[2018-03-24] MEDS: CLOTRIMAZOLE/BETAMET DIPROP 15 GM CRTUBE TP SCH (22:11)
[2018-03-24] MEDS: LATANOPROST 0.005% 2.5 ML OPHT DROPS EACHEYE SCH (22:12)
[2018-03-24] MEDS: Mirabegron [Myrbetriq] 50 MG PO SCH (22:12)
[2018-03-24] MEDS: Enzalutamide [Xtandi] 80 MG PO SCH (23:26)
[2018-03-25] MEDS ORDERED: NALOXONE HCL 0.4 MG/ML INJ IVP PRN (07:50)
[2018-03-25] MEDS ORDERED: MEPERIDINE 25 MG/ML SYR IVP PRN (07:50)
[2018-03-25] MEDS ORDERED: fentaNYL 100 MCG/2 ML INJ IVP PRN (07:50)
[2018-03-25] MEDS ORDERED: MIDAZOLAM 2 MG/2 ML VIAL IVP PRN (07:50)
[2018-03-25] MEDS ORDERED: FLUMAZENIL 0.5 MG/5 ML MDV IVP PRN (07:50)
[2018-03-25] MEDS ORDERED: NS 1,000 ML IV SCH (08:00)
--- NOTE | 2018-03-25 09:40 | NEUSURGPN ---
Assessment/Plan: 82M w/ moderate severe stenosis at L5S1 and Grade 1 anterolisthesis presenting with progressively worse leg pain and inability to bear weight. -recommend IR injection prior to any surgical intervention -Will follow results of injection, if still unable to bear weight and patient is interested in surgery, we may recommend Laminectomy -surgical discussions pending results of injection -PT/OT -will need to hold xarelto prior to surgery. D/w Dr. Hutson. Subjective: multiple questions this morning. Has concerns about surgery and getting an injection. No increased weakness, numbness tingling. Objective: Alert and oriented no acute distress nonrebreather. speech clear and fluent, EOMI, PEARLA cnii-xii grossly intact. MAEx4, 5/5 BUE BLE antigravity, appears more pain limited on fight, HF 4+/5, ehl 3/5 on left, otherwise 5/5 SILT - Physician Discussed Patient with Dr.: Hutson Neurosurgery Physical Exam - Vitals, I&O, Labs I and O 03/24/18 03/25/18 03/26/18 05:59 05:59 05:59 Intake Total 450 700 Output Total 250 550 Balance 200 150 Intake: Oral (ml) 450 700 Output: Urine (ml) 250 550 Catheter 250 550 Other: Intake Quantity Yes Sufficient Number of Voids Incontinence 1 Vital Signs Temp Pulse Resp BP Pulse Ox 36.6 C 84 18 128/62 H 97 03/25/18 08:45 03/25/18 08:45 03/25/18 08:45 03/25/18 08:45 03/25/18 08:45 ICD10 Worksheet Patient Problems: Problems Problem Status Onset Constipation Acute Prostate cancer metastatic to bone Acute Bleeding from varicose veins of lower extremity Acute C. difficile diarrhea Acute ~02/13/17 Clostridium difficile infection Acute ~07/09/17
[2018-03-25] MEDS ORDERED: TRIAMCINOLONE ACETONIDE 200 MG/5 ML MDV IM ONE (09:58)
[2018-03-25] MEDS ORDERED: MIDAZOLAM 2 MG/2 ML VIAL ONE (10:21)
[2018-03-25] MEDS ORDERED: FLUMAZENIL 0.5 MG/5 ML MDV IVP ONE (10:21)
[2018-03-25] MEDS ORDERED: fentaNYL 100 MCG/2 ML INJ ONE (10:21)
[2018-03-25] MEDS ORDERED: NALOXONE HCL 0.4 MG/ML INJ ONE (10:21)
--- NOTE | 2018-03-25 11:06 | PDRADPN ---
Radiology Procedure Note Date of Procedure: 03/25/18 Radiologist: Leonard Lopes Anesthesia: IV Sedation Pre-op Diagnosis: back pain Post-op Diagnosis: same Procedure: L5-S1 FIDEL Inf/Abcess present in the surg proc area at time of surgery?: No EBL: Minimal
[2018-03-25] MEDS: CLOTRIMAZOLE/BETAMET DIPROP 15 GM CRTUBE TP SCH ×2 (14:01→21:06)
[2018-03-25] MEDS: guaiFENesin 600 MG TAB.ER PO SCH (14:01)
[2018-03-25] MEDS: PREGABALIN 75 MG CAP PO SCH ×2 (14:02→21:04)
[2018-03-25] MEDS: SENNOSIDES/DOCUSATE SODIUM TAB PO SCH ×2 (14:02→21:04)
[2018-03-25] MEDS ORDERED: MAGNESIUM CITRATE 300 ML BOTTLE PO ONE (14:19)
--- NOTE | 2018-03-25 14:23 | HOSPPROG ---
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 moved bowels, feels still constipated. s/p FIDEL today Objective: Vital Signs Temp Pulse Resp BP Pulse Ox 36.6 C 80 16 155/71 H 93 03/25/18 12:16 03/25/18 13:14 03/25/18 12:16 03/25/18 13:14 03/25/18 13:14 03/24/18 03/25/18 03/26/18 05:59 05:59 05:59 Intake Total 450 700 100 Output Total 250 550 Balance 200 150 100 - Physical Exam Constitutional: no apparent distress, appears nourished Eyes: PERRL, anicteric sclera Ears, Nose, Mouth, Throat: moist mucous membranes, hearing normal Cardiovascular: regular rate and rhythym, no murmur, rub, or gallop Respiratory: no respiratory distress, no rales or rhonchi Gastrointestinal: normoactive bowel sounds, soft, non-tender abdomen Genitourinary: no bladder fullness, No arenas in urethra Skin: warm, other (some sacral skin breakdown. POA) Neurologic: AAOx3, sensation intact bilaterally ICD10 Worksheet Patient Problems: Problems Problem Status Onset Constipation Acute Prostate cancer metastatic to bone Acute Bleeding from varicose veins of lower extremity Acute C. difficile diarrhea Acute ~02/13/17 Clostridium difficile infection Acute ~07/09/17
--- NOTE | 2018-03-25 15:30 | WOCRNPDOC ---
WOCRN Advanced Assessment Note - Skin Integrity Problem, Advanced Assess Right Gluteal Cleft Dressing Type: Mepilex Border Other Dressing Type: sacral Dressing Description: Intact, Saturated Integumentary Issue Intervention: Dressing Removed Nery Wound Tissue: Blanching, Intact Wound Bed Color: [place] Skin Integrity Problem Comment: Patient rolled to his left side with assist from several nurses. Mepilex border dressing removed. There is a raised area of skin that appears to be a skin tag of some sort. The tissue is firm and non- fluctuant. Scar tissue was considered, but the patient insists that there has never been a wound to the area. Nursing was particularly concerned about continuous moisture in the area related to the patient being incontinent of both urine and stool. Of note, the patient had a condomn catheter in place, but the pad and linen below the patient are obviously urine soaked. Advised keeping dressing off so as not to keep moisture against the skin. Wound care will not continue to follow this wound. Please reconsult PRN. Left Gluteal Cleft Dressing Type: Mepilex Border Other Dressing Type: sacral Dressing Description: Intact, Saturated Exudate Amount: None Integumentary Issue Intervention: Dressing Removed Nery Wound Tissue: Blanching, Intact Nery Wound Swelling: None Site Odor: None Skin Integrity Problem Comment: Patient rolled to his left side with assist from several nurses. Mepilex border dressing removed. There is a small area of denudement to the left gluteal cleft, likely from moisture to the area. Recommend calazime paste to the area BID. Wound care will not continue to follow this wound. Please reconsult PRN.
[2018-03-25] MEDS: VANCOMYCIN 125 MG/2.5 ML UDL PO SCH ×2 (15:49→21:04)
[2018-03-25] MEDS: HYDROCODONE/APAP 5/325 TAB PO PRN ×2 (16:13→17:48)
[2018-03-25] MEDS: VITAMIN B COMPLEX 1 EA CAP/TAB PO SCH (21:04)
[2018-03-25] MEDS: PANTOPRAZOLE SODIUM 40 MG TAB PO SCH (21:04)
[2018-03-25] MEDS: LEVOTHYROXINE 100 MCG TAB PO SCH (21:04)
[2018-03-25] MEDS: CHOLECALCIFEROL VIT D3 1,000 UNITS TAB PO SCH (21:04)
[2018-03-25] MEDS: CYANO/VITAMIN B12 1000 MCG TAB PO SCH (21:04)
[2018-03-25] MEDS: RIVAROXABAN 20 MG TAB PO SCH (21:04)
[2018-03-25] MEDS: Enzalutamide [Xtandi] 80 MG PO SCH (21:05)
[2018-03-25] MEDS: Mirabegron [Myrbetriq] 50 MG PO SCH (21:06)
[2018-03-25] MEDS: LATANOPROST 0.005% 2.5 ML OPHT DROPS EACHEYE SCH (21:06)
[2018-03-26] MEDS: HYDROCODONE/APAP 5/325 TAB PO PRN ×2 (00:11→17:39)
[2018-03-26] MEDS: PREGABALIN 75 MG CAP PO SCH ×2 (08:35→21:09)
[2018-03-26] MEDS: SENNOSIDES/DOCUSATE SODIUM TAB PO SCH ×2 (08:36→21:12)
[2018-03-26] MEDS: guaiFENesin 600 MG TAB.ER PO SCH (08:36)
[2018-03-26] MEDS: VANCOMYCIN 125 MG/2.5 ML UDL PO SCH ×2 (08:37→21:09)
[2018-03-26] MEDS: CLOTRIMAZOLE/BETAMET DIPROP 15 GM CRTUBE TP SCH ×2 (08:39→21:17)
[2018-03-26 10:13] LABS: PLATELET COUNT 170 10^3/uL (150-400)
--- NOTE | 2018-03-26 11:10 | NEUSURGPN ---
Assessment/Plan: Assessment: 82M w/ moderate severe stenosis at L5S1 and Grade 1 anterolisthesis presenting with progressively worse leg pain and inability to bear weight. Plan: -Patient s/p L5-S1 FIDEL on 03/25/18 -Patient feels his bilateral knee pain has improved following injection. Unable to assess gait at this time. -Discussed with patient that is injections fail, surgical recommendation would be a laminectomy. Patient is not interested in any surgery. -We will sign off and have patient follow up as an out patient. -PT/OT -Please call neurosurgery with any questions/concerns or if patient decides to proceed with surgery. -Patient discussed with Dr Hutson Subjective: Eating breakfast in bed, knee pain improved Objective: Alert and oriented x3 speech clear MAEx4, 5/5 BUE BLE antigravity, appears more pain limited on fight, HF 4+/5, ehl 3/5 on left, otherwise 5/5 Neuro Check Frequency: per routine Urinary Catheter in Place: No - Physician Discussed Patient with Dr.: Hutson Neurosurgery Physical Exam - Vitals, I&O, Labs I and O 03/25/18 03/26/18 03/27/18 05:59 05:59 05:59 Intake Total 700 1200 Output Total 550 200 Balance 150 1000 Intake: Oral (ml) 700 1100 IV Infused (ml) 100 Ns 1,000 ml @ 30 mls/hr 100 IV CONT JEFF Rx#: [id number] Output: Urine (ml) 550 200 Catheter 550 200 Other: Intake Quantity Yes Sufficient Number of Voids Incontinence 1 Number of Stools Bedside Commode 1 Incontinence 1 Microbiology 03/26/18 06:20 Gastrointestinal Tract Panel (PCR) - Final Stool No Organism Detected Vital Signs Temp Pulse Resp BP Pulse Ox 36.6 C 67 17 141/68 H 94 03/26/18 08:30 03/26/18 08:30 03/26/18 08:30 03/26/18 08:30 03/26/18 08:30 Laboratory Results 03/26/18 09:42 03/26/18 09:42 ICD10 Worksheet Patient Problems: Problems Problem Status Onset Constipation Acute Prostate cancer metastatic to bone Acute Bleeding from varicose veins of lower extremity Acute C. difficile diarrhea Acute ~02/13/17 Clostridium difficile infection Acute ~07/09/17
--- NOTE | 2018-03-26 14:22 | ASMTCMCOM ---
CM Note CM Note Notes: PT/OT recommedning SNF. Pt and family unavailable to discuss choice. PASRR completed. Date Signed: 03/26/2018 02:21 PM Electronically Signed By:Shantell Fisher LCSW
[2018-03-26] MEDS ORDERED: PNEUMOC 13-VAL CONJ-DIP CRM/PF 0.5 ML SYR IM ONE (14:40)
--- NOTE | 2018-03-26 15:26 | HOSPPROG ---
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 code: dnr anticoag: unclear indication will discuss w family dispo: inpt OT rec SNF will d/w family Subjective: knee pain better Objective: Vital Signs Temp Pulse Resp BP Pulse Ox 37 C 65 17 120/51 L 98 03/26/18 12:30 03/26/18 12:30 03/26/18 12:30 03/26/18 12:30 03/26/18 12:30 Microbiology 03/26/18 06:20 Gastrointestinal Tract Panel (PCR) - Final Stool No Organism Detected Laboratory Results 03/26/18 09:42 03/26/18 09:42 03/25/18 03/26/18 03/27/18 05:59 05:59 05:59 Intake Total 700 1200 Output Total 550 200 Balance 150 1000 - Physical Exam Constitutional: no apparent distress, appears nourished Eyes: PERRL, anicteric sclera Ears, Nose, Mouth, Throat: moist mucous membranes, hearing normal Cardiovascular: regular rate and rhythym, no murmur, rub, or gallop Respiratory: no respiratory distress, no rales or rhonchi Gastrointestinal: normoactive bowel sounds, soft, non-tender abdomen Genitourinary: no bladder fullness Skin: warm, normal color Musculoskeletal: No full muscle strength ICD10 Worksheet Patient Problems: Problems Problem Status Onset Constipation Acute Prostate cancer metastatic to bone Acute Bleeding from varicose veins of lower extremity Acute C. difficile diarrhea Acute ~02/13/17 Clostridium difficile infection Acute ~07/09/17
[2018-03-26] MEDS: ACETAMINOPHEN 325 MG TAB PO PRN (16:25)
[2018-03-26] MEDS: PHENYLEPHRINE/SHK LV/MO/PET,WH 1 APP/GM OINT PR PRN (17:40)
[2018-03-26] MEDS: DICLOFENAC SODIUM TP PRN (17:42)
[2018-03-26] MEDS: VITAMIN B COMPLEX 1 EA CAP/TAB PO SCH (21:09)
[2018-03-26] MEDS: CHOLECALCIFEROL VIT D3 1,000 UNITS TAB PO SCH (21:09)
[2018-03-26] MEDS: RIVAROXABAN 20 MG TAB PO SCH (21:09)
[2018-03-26] MEDS: LEVOTHYROXINE 100 MCG TAB PO SCH (21:09)
[2018-03-26] MEDS: CYANO/VITAMIN B12 1000 MCG TAB PO SCH (21:09)
[2018-03-26] MEDS: PANTOPRAZOLE SODIUM 40 MG TAB PO SCH (21:09)
[2018-03-26] MEDS: Enzalutamide [Xtandi] 80 MG PO SCH (21:17)
[2018-03-26] MEDS: Mirabegron [Myrbetriq] 50 MG PO SCH (21:20)
[2018-03-26] MEDS: LATANOPROST 0.005% 2.5 ML OPHT DROPS EACHEYE SCH (21:21)
[2018-03-27] MEDS: DICLOFENAC SODIUM TP PRN ×2 (00:26→15:56)
[2018-03-27] MEDS: HYDROCODONE/APAP 5/325 TAB PO PRN ×2 (00:26→04:49)
[2018-03-27] MEDS: PHENYLEPHRINE/SHK LV/MO/PET,WH 1 APP/GM OINT PR PRN (02:51)
[2018-03-27] MEDS: ACETAMINOPHEN 325 MG TAB PO PRN (03:16)
[2018-03-27] MEDS: guaiFENesin 600 MG TAB.ER PO SCH (09:40)
[2018-03-27] MEDS: PREGABALIN 75 MG CAP PO SCH ×2 (09:40→21:51)
[2018-03-27] MEDS: VANCOMYCIN 125 MG/2.5 ML UDL PO SCH ×2 (09:40→21:51)
[2018-03-27] MEDS: SENNOSIDES/DOCUSATE SODIUM TAB PO SCH ×2 (09:41→21:51)
[2018-03-27] MEDS: CLOTRIMAZOLE/BETAMET DIPROP 15 GM CRTUBE TP SCH ×2 (09:42→21:50)
--- NOTE | 2018-03-27 10:52 | WOCRNPDOC ---
WOCRN Advanced Assessment Note - Skin Integrity Problem, Advanced Assess Left Gluteal Cleft Dressing Type: Mepilex Border (sacral) Dressing Description: Clean/Dry, Intact Closure Description: Approximated Exudate Amount: None Exudate Characteristic(s): None Integumentary Issue Intervention: Dressing Removed Nery Wound Tissue: Blanching, Intact Wound Bed Color: [place] Wound Edges: Epithelizing Skin Integrity Problem Comment: Patient rolled to his left side with assist from RN Eboni and ADULT EDUCATION PROFESSIONAL Nixon. Mepilex sacral removed. Small formerly open area on left gluteal cleft is now epithelialized. Patient is now with both rectal tube and condomn cath in place to control for moisture. Continue with current plan - calazime BID. Wound care will not continue to follow. Please reconsult PRN.
--- NOTE | 2018-03-27 13:47 | ASMTCMCOM ---
CM Note CM Note Notes: PT/OT rec SNF. [facility], [facility], [facility] and [facility] have all aceppted pt. LM for to assist in decision. CM will continue to reach out for SNF choice. Date Signed: 03/27/2018 01:47 PM Electronically Signed By:Shantell Fisher LCSW
--- NOTE | 2018-03-27 13:50 | ASMTCMCOM ---
CM Note CM Note Notes: Pt admitted from home with [facility]. Pt very weeak. PT/OT rec SNF. PT has been at [facility] before. CM to follow up with pt and family re: SNF. Date Signed: 03/27/2018 01:50 PM Electronically Signed By:Shantell Fisher LCSW
--- NOTE | 2018-03-27 15:04 | ASMTCMCOM ---
CM Note CM Note Notes: Met with Ivelisse and Dannie to discuss which facility they may prefer. They live in [facility] [place] [facility] and would like to choose [facility]. Amara is to come see them tomorrow. Patient likely to be medically ready for transfer tomorrow. CM to follow. Plan: To SNF [facility] Date Signed: 03/27/2018 03:04 PM Electronically Signed By:Haven Zarate RN
--- NOTE | 2018-03-27 15:30 | HOSPPROG ---
Hospitalist Progress Note Assessment/Plan: 82 yo M w metastatic prostate CA a/w constipation and weakness weakness: MRI shows diffuse bony mets but no tumor compressing spine noted is severe l5-s1 stenosis s/p L5S1 FIDEL he also has profound deconditioning per neurosurgery. 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 code: dnr anticoag: has had VTE X 2; reasonable to continue dispo: inpt OT rec SNF will d/w family Subjective: plan is for dc to SNF tomorrow Objective: Vital Signs Temp Pulse Resp BP Pulse Ox 36.6 C 69 16 110/51 L 96 03/27/18 08:50 03/27/18 08:50 03/27/18 08:50 03/27/18 08:50 03/27/18 08:50 Laboratory Results 03/26/18 09:42 03/26/18 09:42 03/26/18 03/27/18 03/28/18 05:59 05:59 05:59 Intake Total 1200 300 Output Total 200 800 Balance 1000 -500 - Physical Exam Constitutional: no apparent distress, appears nourished, chronically ill appearing Eyes: PERRL, anicteric sclera Ears, Nose, Mouth, Throat: moist mucous membranes, hearing normal Cardiovascular: regular rate and rhythym, no murmur, rub, or gallop Respiratory: no respiratory distress, no rales or rhonchi Gastrointestinal: normoactive bowel sounds, soft, non-tender abdomen Genitourinary: other (condom cath) Skin: warm, normal color Musculoskeletal: no muscle tenderness, No full muscle strength ICD10 Worksheet Patient Problems: Problems Problem Status Onset Constipation Acute Prostate cancer metastatic to bone Acute Bleeding from varicose veins of lower extremity Acute C. difficile diarrhea Acute ~02/13/17 Clostridium difficile infection Acute ~07/09/17
[2018-03-27] MEDS: FLUTICASONE NASAL 120 SPRAYS/16 GM MDI NS PRN (15:55)
[2018-03-27] MEDS: Enzalutamide [Xtandi] 80 MG PO SCH (21:50)
[2018-03-27] MEDS: VITAMIN B COMPLEX 1 EA CAP/TAB PO SCH (21:51)
[2018-03-27] MEDS: CHOLECALCIFEROL VIT D3 1,000 UNITS TAB PO SCH (21:51)
[2018-03-27] MEDS: PANTOPRAZOLE SODIUM 40 MG TAB PO SCH (21:51)
[2018-03-27] MEDS: CYANO/VITAMIN B12 1000 MCG TAB PO SCH (21:51)
[2018-03-27] MEDS: LEVOTHYROXINE 100 MCG TAB PO SCH (21:51)
[2018-03-27] MEDS: RIVAROXABAN 20 MG TAB PO SCH (21:51)
[2018-03-27] MEDS: LATANOPROST 0.005% 2.5 ML OPHT DROPS EACHEYE SCH (21:52)
[2018-03-27] MEDS: Mirabegron [Myrbetriq] 50 MG PO SCH (21:52)
[2018-03-28] MEDS: VANCOMYCIN 125 MG/2.5 ML UDL PO SCH ×2 (10:12→22:48)
[2018-03-28] MEDS: PREGABALIN 75 MG CAP PO SCH ×2 (10:13→22:39)
[2018-03-28] MEDS: guaiFENesin 600 MG TAB.ER PO SCH (10:13)
[2018-03-28] MEDS: SENNOSIDES/DOCUSATE SODIUM TAB PO SCH ×2 (10:14→22:55)
[2018-03-28] MEDS: CLOTRIMAZOLE/BETAMET DIPROP 15 GM CRTUBE TP SCH ×2 (10:14→22:41)
[2018-03-28] MEDS: FLUTICASONE NASAL 120 SPRAYS/16 GM MDI NS PRN (10:16)
--- NOTE | 2018-03-28 14:30 | ASMTCMCOM ---
CM Note CM Note Notes: CM spoke with screening representative from [facility]. Pt told her that he wasn't sure whether he wanted to go there. CM then spoke with Pt's who had some concerns re [facility] and wanted to revisit [facility]. [facility] response to the referral indicated that they needed more information. CM both called Kimmy at [facility] and responded to the referral on [employer]. Waiting to hear back. D/C Plan: SNF Rehab Date Signed: 03/28/2018 02:29 PM Electronically Signed By:Nichol Amato
--- NOTE | 2018-03-28 16:36 | HOSPPROG ---
Hospitalist Progress Note Assessment/Plan: # back pain - diffuse bony mets as well as L5-S1 central canal stenosis - much better controlled, do not think that steroids would be beneficial at this point - declines surgery - cont celebrex and norco # prostate ca with bony mets - cont xtandi - f/u Dr Flower # hx c. dif - on suppressive vanc PO # hx VTE - xarelto # constipation - resolved # DNR Subjective: long discussion with and patient - they had misunderstood regarding bony mets in his spine and thought that he had no mets Objective: Vital Signs Temp Pulse Resp BP Pulse Ox 36.7 C 62 12 116/65 96 03/28/18 09:30 03/28/18 09:30 03/28/18 09:30 03/28/18 09:30 03/28/18 09:30 Laboratory Results 03/26/18 09:42 03/26/18 09:42 03/27/18 03/28/18 03/29/18 05:59 05:59 05:59 Intake Total 300 1160 500 Output Total 800 1300 700 Balance -500 -140 -200 - Time Spent With Patient Time Spent with Patient: greater than 35 minutes Time Spent with Patient: Greater than 35 minutes spent on this patients care, greater than 50% of time spent counseling, educating, and coordinating care regarding the above mentioned plan. - Physical Exam Constitutional: obese, other (lying in bed) ICD10 Worksheet Patient Problems: Problems Problem Status Onset Constipation Acute Prostate cancer metastatic to bone Acute Clostridium difficile infection Acute ~07/09/17 C. difficile diarrhea Acute ~02/13/17 Bleeding from varicose veins of lower extremity Acute
[2018-03-28] MEDS: CHOLECALCIFEROL VIT D3 1,000 UNITS TAB PO SCH (22:40)
[2018-03-28] MEDS: RIVAROXABAN 20 MG TAB PO SCH (22:40)
[2018-03-28] MEDS: LEVOTHYROXINE 100 MCG TAB PO SCH (22:40)
[2018-03-28] MEDS: VITAMIN B COMPLEX 1 EA CAP/TAB PO SCH (22:40)
[2018-03-28] MEDS: PANTOPRAZOLE SODIUM 40 MG TAB PO SCH (22:40)
[2018-03-28] MEDS: Enzalutamide [Xtandi] 80 MG PO SCH (22:43)
[2018-03-28] MEDS: CYANO/VITAMIN B12 1000 MCG TAB PO SCH (22:44)
[2018-03-28] MEDS: HYDROCODONE/APAP 5/325 TAB PO PRN (22:50)
[2018-03-28] MEDS: LATANOPROST 0.005% 2.5 ML OPHT DROPS EACHEYE SCH (22:55)
[2018-03-28] MEDS: Mirabegron [Myrbetriq] 50 MG PO SCH (22:57)
[2018-03-29] MEDS: HYDROCODONE/APAP 5/325 TAB PO PRN (03:28)
[2018-03-29] MEDS: guaiFENesin 600 MG TAB.ER PO SCH (10:11)
[2018-03-29] MEDS: PREGABALIN 75 MG CAP PO SCH (10:11)
[2018-03-29] MEDS: VANCOMYCIN 125 MG/2.5 ML UDL PO SCH (10:13)
[2018-03-29] MEDS: SENNOSIDES/DOCUSATE SODIUM TAB PO SCH (10:13)
[2018-03-29] MEDS: ACETAMINOPHEN 325 MG TAB PO PRN (10:15)
[2018-03-29] MEDS: FLUTICASONE NASAL 120 SPRAYS/16 GM MDI NS PRN (10:17)
[2018-03-29] MEDS: CLOTRIMAZOLE/BETAMET DIPROP 15 GM CRTUBE TP SCH (10:19)
[2018-03-29 11:36] VITALS: BP 155/79
--- NOTE | 2018-03-29 15:32 | PDIAF ---
- Diagnosis Diagnosis: Prostate cancer Code Status: Do Not Resuscitate - Medication Management Discharge Medications: Medications to Continue on Transfer Herbals/Supplements -Info Only 1 each PO AD 10/12/13 [Last Taken Unknown] Levothyroxine [Synthroid 100 mcg (*)] 100 mcg PO HS 10/12/13 [Last Taken ] Pregabalin [Lyrica 75mg (*)] 150 mg PO BID 10/12/13 [Last Taken 03/22/18 09:00] celeCOXIB [Celebrex (*)] 200 mg PO BID 10/12/13 [Last Taken 03/22/18 09:00] Rivaroxaban [Xarelto 10mg (*)] 20 mg PO HS 04/14/16 [Last Taken 03/22/18] Latanoprost 0.005% [Xalatan 0.005% (*)] 1 drops EACHEYE HS 04/15/16 [Last Taken 03/21/18] Pantoprazole Sodium [Protonix 40mg (*)] 40 mg PO HS 04/15/16 [Last Taken ] Acetaminophen [Tylenol 325mg (*)] 325 mg PO DAILY PRN 03/23/18 [Last Taken Unknown] Cholecalciferol Vit D3 [Vitamin D3 (*)] 1,000 units PO HS 03/23/18 [Last Taken 03/21/18] Cyanocobalamin [Vitamin B12 (*)] 1,000 mcg PO HS 03/23/18 [Last Taken 03/21/18] Enzalutamide [Xtandi] 80 mg PO HS 03/23/18 [Last Taken 03/21/18] Fluticasone Nasal [Flonase Nasal [place]] 3 - 4 sprays NASAL DAILY PRN 03/23/18 [ Last Taken Unknown] Mirabegron [Myrbetriq] 50 mg PO HS 03/23/18 [Last Taken 03/21/18] Vancomycin [Vancomycin (*)] 125 mg PO BID 03/23/18 [Last Taken 03/21/18 21:00] Vitamin B Complex [Vitamin B Complex (OTC)] 1 each PO HS 03/23/18 [Last Taken ] Diclofenac Sodium [Pennsaid] 1 gm TP BID PRN 03/25/18 [Last Taken Unknown] Phenylephrine/Shk Lv/Mo/Pet,Wh [Preparation H Oint] 1 dorothy RI BID PRN oint 03/29 [Last Taken Unknown] Polyethylene Glycol 3350 [Miralax 17 gm (*)] 17 gm PO DAILY PRN pkt 03/29/18 [ Last Taken Unknown] Discharge Medications: Refer to the Discharge Home Medication list for PRN reason. - Orders Services needed: Registered Nurse, Certified Quality Assurance Monitor Final, Physical Therapy, Occupational Therapy Isolation Type: None Additional Instructions: No activity restrictions from a neurosurgery standpoint Activity as tolerated - Follow Up Care Current Providers and Referrals: Ankit Flower MD [Medical Doctor] - (follow up in 1-2 weeks) Patient,NotPresent [Unknown] - As per Instructions Patricio Hutson MD [Medical Doctor] - follow up as scheduled (Follow up as needed, if decides to pursue laminectomy surgery No activity restrictsions from Neurosurgery standpoint )
--- NOTE | 2018-03-29 15:54 | ASMTCMCOM ---
CM Note CM Note Notes: Pt ready for DC today. [facility] has accepted pt as long as pt brings his own Xtandi. Final orders faxed. Pt needs stretcher which is set for 1700. Date Signed: 03/29/2018 03:54 PM Electronically Signed By:Shantell Fisher LCSW
--- NOTE | 2018-03-29 17:03 | GDS ---
[f rep st] DISCHARGE SUMMARY PROCEDURE: Epidural steroid injection on 03/25/2018, to L5-S1. IMPORTANT IMAGIN. 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 2. Lumbar spine MRI shows again diffuse osseous metastases, pathologic compression fracture at L1, a s well as L5-S1 severe bilateral facet arthropathy, as well as [id number] central canal steno sis and L4-L5 moderate central canal stenosis. CONSULTATIONS: 1. Neurosurgery. 2. Urology. HOSPITAL COURSE: This is an 82-year-old man with prostate cancer, who presented with worsening back pain as well as pelvic pain. Imaging was acquired as above. He underwent a neurosurgery consultatio n, who offered a laminectomy; however, he declined this given his age as well as poor functional stat us. He then underwent a steroid injection. This provided him significant pain relief. Steroids wer e considered to treat his metastatic disease, however, given his relief with the injection did not se em to be indicated. He is quite deconditioned. He will need ongoing [facility] facility rehab with PT as well as OT. FOLLOWUP: 1. He may follow up with Dr. Hutson as needed if he would like to consider a laminectomy. 2. Follow up with Dr. Flower in 1-2 weeks for ongoing management of his prostate cancer. DIAGNOSES: 1. Back pain. 2. Prostate cancer with bony metastatic disease. 3. L5-S1 wetwvoul-lk-[id number] central canal stenosis. 4. Deconditioning. 5. History of Clostridium difficile on suppressive oral vancomycin. 6. History of deep venous thrombosis/pulmonary embolism, on Xarelto. 7. Constipation, which has resolved. BILLING: I spent more than 30 minutes on the day of discharge coordinating care. /[id number]/MODL
== END 2018-03-29 18:00 | DRG 543 ==
LOC: EDUNIT# → F1N 23:36 → OBSVTOIN 03-23 15:05
PROVIDERS: ADMIT Family Medicine; ATTEND Family Medicine
DX: C79.51 Secondary malignant neoplasm of bone (principal); M84.58XA Pathological fracture in neoplastic disease, other specified site, initial encounter for fracture; C61 Malignant neoplasm of prostate; M48.07 Spinal stenosis, lumbosacral region; K59.00 Constipation, unspecified; I10 Essential (primary) hypertension; G47.33 Obstructive sleep apnea (adult) (pediatric); R73.03 Prediabetes; E78.5 Hyperlipidemia, unspecified; E66.9 Obesity, unspecified; K76.0 Fatty (change of) liver, not elsewhere classified; H40.9 Unspecified glaucoma; Z23 Encounter for immunization; Z86.711 Personal history of pulmonary embolism; Z86.718 Personal history of other venous thrombosis and embolism; Z66 Do not resuscitate; Z79.01 Long term (current) use of anticoagulants
CPT/HCPCS: 82435-PO; 82565-PO; 82947-PO; 84132-PO; 84295-PO; 84520-PO; 85014-PO; 97110-GP; 97162-GP; 97166-GO; 97530-GO; 97530-GP; A9585; G8978-GP-CM; G8979-GP-CL; G8987-GO-CL; G8988-GO-CK; J2250; J2310; J2405; J3010; J3301; Q9967